=== PATIENT | female | born 1980 | race Caucasian/White ===

== ENCOUNTER 2018-09-23 15:57 | Emergency (ER) | payer MEDICAID ==
[~2018-09-23] VITALS: Ht 170.2 cm; Wt 104.3 kg
[~2018-09-23 15:57] MED LIST: BIRTH CONTROL
[2018-09-23 16:40] VITALS: BP 121/87
[2018-09-23] MEDS ORDERED: IBUPROFEN 800 MG TAB PO ONE (17:00)
== END 2018-09-23 17:27 | disposition home or self-care (01) ==
LOC: ER 15:57
DX: S90.122A Contusion of left lesser toe(s) without damage to nail, initial encounter (principal); F17.200 Nicotine dependence, unspecified, uncomplicated; E66.01 Morbid (severe) obesity due to excess calories; Z68.36 Body mass index [BMI] 36.0-36.9, adult; W22.8XXA Striking against or struck by other objects, initial encounter; Y93.89 Activity, other specified; Y92.89 Other specified places as the place of occurrence of the external cause; Y99.8 Other external cause status
CPT/HCPCS: 73630

== ENCOUNTER 2024-01-13 19:35 | Emergency (ER) | payer MEDICAID ==
[~2024-01-13] VITALS: Ht 170.2 cm; Wt 104.5 kg
[~2024-01-13 19:35] MED LIST changes: +CLIN1CAP70 PO; +HYDR-4902 PO
[2024-01-13 20:30] VITALS: BP 155/77; PULSE 101; RESP 24; TEMP 98.7; O2SAT 97
[2024-01-13] MEDS: DexAMETHasone SOD PHOS 10MG/1ML VIAL INJ IM ONE (21:02)
[2024-01-13] MEDS: diphenhdrAMINE HCL 50 MG/1 ML VL IM ONE (21:03)
[2024-01-13] MEDS ORDERED: METH4PAK PO (22:43)
== END 2024-01-13 23:24 | disposition home or self-care (01) ==
LOC: ER 19:35
DX: T78.49XA Other allergy, initial encounter (principal); F15.90 Other stimulant use, unspecified, uncomplicated; Z79.899 Other long term (current) drug therapy; Z98.890 Other specified postprocedural states; X58.XXXA Exposure to other specified factors, initial encounter
CPT/HCPCS: 71046; 96372; 99284; J1100; J1200

== ENCOUNTER 2024-12-01 05:24 | Inpatient (IN) | payer MEDICAID ==
[~2024-12-01] VITALS: Ht 170.2 cm; Wt 115.0 kg
[2024-12-01] VITALS (8 sets, daily range): BP systolic 132–142; BP diastolic 72–81; PULSE 81–120; RESP 16–22; TEMP 98–98.3; O2SAT 92–100
[~2024-12-01 05:24] MED LIST changes: +METH4PAK PO
[2024-12-01] MEDS: ONDANSETRON HCL 4 MG/2 ML VIAL IV ONE (05:56)
[2024-12-01] MEDS: SODIUM CHLORIDE 0.9% 1,000 ML IV ONE (06:00)
[2024-12-01 06:29] LABS: Chloride 107 mmol/L (98-107); Potassium 3.7 mmol/L (3.5-5.1); Sodium 139 mmol/L (136-145)
[2024-12-01 06:30] LABS: Anion Gap 9 (5-15); Calcium 9.8 mg/dL (8.7-10.4); Carbon Dioxide 23 mmol/L (20-31)
[2024-12-01 06:33] LABS: Hematocrit 34.5 % (36.0-46.0); Hemoglobin 11.3 g/dL (12.2-16.2); Mean Corpuscular Hemoglobin 23.2 pg (28.0-32.0); Mean Corpuscular Volume 70.9 fL (80.0-100.0); Nucleated Red Blood Cells % 0.1 %
--- NOTE | 2024-12-01 06:34 | ED.PDOC ---
SOB-HPI HPI Comments 44 y/o F, with no prior history presents to the ED for CC of shortness of breath. Patient states, she has been experiencing shortness of breath x2days with associated generalized body itching. Patient reports, having new onset symptoms of nausea and vomiting [id number]. At this time patient is tachycardiac with a heart rate in the 120's and hypertensive with a blood pressure of 157/120mmHg. Patient denies any prior medical history. Patient denies cough, f ever, body-aches, or chest pain. No other symptoms or modifying factors present at this time. Chief Complaint: Shortness of Breath Time Seen by MD: 06:20 Primary Care Provider: Johnnie Pollock notes: Nurses Notes, Medications, Allergies Information Source: Patient Mode of Arrival: Ambulatory Severity: Moderate Timing: Days Duration: Since onset Context: At Rest PE Risk Factors: None History of: None Prehospital treatment: None Modifying Factors: Nothing Associated Signs and Symptoms: None Past Medical History PAST MEDICAL HISTORY: Denies Surgical History: Cholecystectomy HOSPITAL INSURANCE CLERK History: No Pertinent HOSPITAL INSURANCE CLERK History Family History Family History: Unknown Social History Smoker: Non-Smoker Alcohol: Occasionally Drugs: Marijuana Lives In: Home Constitutional: denies: chills, diaphoresis, fatigue, fever, malaise, sweats, weakness, others EENTM: denies: blurred vision, double vision, ear bleeding, ear discharge, ear drainage, ear pain, ear ringing, eye pain, eye redness, hearing loss, mouth pain, mouth swelling, nasal discharge, nose bleeding, nose congestion, nose pain, photophobia, tearing, throat pain, throat swelling, voice changes, others Respiratory: reports: shortness of breath; denies: cough, hemoptysis, orthopnea, SOB at rest, SOB with excertion, stridor, wheezing, others Cardiovascular: denies: chest pain, dizzy spells, diaphoresis, Dyspnea on exertion, edema, irregular heart beat, left arm pain, lightheadedness, palpitations, PND, syncope, others Gastrointestinal: reports: nausea, vomiting; denies: abdomen distended, abdominal pain, blood streaked bowels, constipated, diarrhea, dysphagia, difficulty swallowing, hematemesis, melena, poor appetite, poor fluid intake, rectal bleeding, rectal pain, others Genitourinary: denies: abnormal vagina bleeding, burning, dyspareunia, dysuria, flank pain, frequency, hematuria, incontinence, pain, , vagina discharge, urgency, others Neurological: denies: dizziness, fainting, headache, left sided numbness, left sided weakness, numbness, paresthesia, pre-existing deficit, right sided numbness, right sided weakness, seizure, speech problems, tingling, tremors, weakness, others Musculoskeletal: denies: back pain, gout, joint pain, joint swelling, muscle pain, muscle stiffness, neck pain, others Integumetry: denies: bruises, change in color, change in hair/nails, dryness, laceration, lesions, lumps, rash, wounds, others Allergic/Immunocompromised: reports: Itching; denies: Difficulty Healing, Frequent Infections, Hives, others Hematologic/Lymphatic: denies: anemia, blood clots, easy bleeding, easy bruising, swollen glands, others Endocrine: denies: excessive hunger, excessive sweating, excessive thirst, excessive urination, flushing, intolerance to cold, intolerance to heat, unexplained weight gain, unexplained weight loss, others Psychiatric: denies: anxiety, bipolar disorder, depression, hopeless, panic disorder, schizophrenia, sleepless, suicidal, others All Other Systems: Reviewed and Negative Physical Exam General Appearance: No Apparent Distress, Normal HEENT: Normal ENT Inspection, Pharynx Normal Neck: Full Range of Motion, Non-Tender, Normal, Normal Inspection Respiratory: Chest Non-Tender, No Accessory Muscle Use, No Respiratory Distress, Wheezing, Other (non-productive cough) Cardiovascular: No Edema, No Murmur, No Gallop, Normal Peripheral Pulses, Regular Rate/Rhythm Breast Exam: Deferred Gastrointestinal: No Organomegaly, Non Tender, No Pulsatile Mass, Normal Bowel Sounds, Soft Genitalia: Deferred Pelvic: Deferred Rectal: Deferred Extremities: No calf tenderness, Normal capillary refill, Normal inspection, Normal range of motion, Non-tender, No pedal edema Musculoskeletal : Apperance: Normal Neurologic: Alert, site safety representative II-XII nml as Tested, No Motor Deficits, Normal Affect, Normal Mood, No Sensory Deficits Cerebellar Function: Normal Reflexes: Normal Skin: Dry, Normal Color, Warm Lymphatic: No Adenopathy Was a procedure done? Was a procedure done?: No Differential Dx Differential Diagnosis: Bronchitis, Pneumonia, Sinusitis, Pharyngitis, URI X-Ray, Labs, Meds, VS Vital Signs Date Time Temp Pulse Resp B/P (MAP) Pulse Ox O2 Delivery O2 Flow Rate FiO2 12/01/24 07:57 97.9 114 18 97 97.9 12/01/24 07:57 114 17 96 Nasal Cannula 2.0 12/01/24 06:32 78 12/01/24 06:07 120 22 94 Room Air* 0 21 12/01/24 06:01 98.0 120 22 157/120 (132) 94 98.0 12/01/24 05:35 98.0 120 22 157/120 (132) 94 98.0 12/01/24 05:35 94 Room Air* 0 21 Lab Test 12/01/24 06:46 12/01/24 05:59 12/01/24 05:44 Range/Units Troponin I High Sensitivity < 3 L < 3 L </=34 ng/L White Blood Count 4.8 4.4-10.8 10^3/uL Red Blood Count 4.86 4.0-5.20 10^6/uL Hemoglobin 11.3 L 12.2-16.2 g/dL Hematocrit 34.5 L 36.0-46.0 % Mean Corpuscular Volume 70.9 L 80.0-100.0 fL Mean Corpuscular Hemoglobin 23.2 L 28.0-32.0 pg Mean Corpuscular Hemoglobin Concent 32.7 32.0-36.0 g/dL Red Cell Distribution Width 17.1 H 11.8-14.3 % Platelet Count 279 140-450 10^3/uL Mean Platelet Volume 6.7 L 6.9-10.8 fL Neutrophils (%) (Auto) 59.9 37.0-80.0 % Lymphocytes (%) (Auto) 23.4 10.0-50.0 % Monocytes (%) (Auto) 11.0 0.0-12.0 % Eosinophils (%) (Auto) 5.1 0.0-7.0 % Basophils (%) (Auto) 0.6 0.0-2.0 % Neutrophils # (Auto) 2.9 1.6-8.6 10 ^3/uL Lymphocytes # (Auto) 1.1 0.4-5.4 10 ^3/uL Monocytes # (Auto) 0.5 0-1.3 10 ^3/uL Eosinophils # (Auto) 0.2 0-0.8 10 ^3/uL Basophils # (Auto) 0 0-0.2 10 ^3/uL Nucleated Red Blood Cells 0.1 % Sodium Level 139 136-145 mmol/L Potassium Level 3.7 3.5-5.1 mmol/L Chloride Level 107 98-107 mmol/L Carbon Dioxide Level 23 20-31 mmol/L Anion Gap 9 5-15 Blood Urea Nitrogen 10 9-23 mg/dL Creatinine 0.81 0.550-1.02 mg/dL Glomerular Filtration Rate Calc 91 >90 mL/min BUN/Creatinine Ratio 12.3 10.0-20.0 Serum Glucose 109 H 74-106 mg/dL Calcium Level 9.8 8.7-10.4 mg/dL Urine Test Negative Negative Current Medications Medications (Trade) Dose Ordered Sig/Shay Route Start Time Stop Time Status Last Admin Ondansetron HCl (Zofran) 4 mg ONCE ONCE IV 12/01/24 05:45 12/01/24 05:47 DC 12/01/24 05:56 Sodium Chloride 1,000 ml @ 1,000 mls/hr Q1H ONCE IV 12/01/24 06:00 12/01/24 06:59 DC 12/01/24 06:00 Albuterol (Ventolin Medneb) 5 mg ONCE ONCE NEB 12/01/24 07:45 12/01/24 07:46 DC 12/01/24 08:08 Ipratropium [place] (Atrovent Medneb) 0.5 mg ONCE ONCE NEB 12/01/24 07:45 12/01/24 07:46 DC 12/01/24 08:08 Methylprednisolone Sodium Succinate (Solu Medrol) 62.5 mg ONCE ONCE IV 12/01/24 07:45 12/01/24 07:46 DC 12/01/24 07:[address] [address] Ph: [phone] DIAGNOSTIC IMAGING Diagnostic Imaging Report : [id number] Signed PATIENT: NAE KOROMA ACCT: [id number] UNIT: [id number] : 1980 LOC: ER ROOM / BED: / AGE / SEX: 44 / F ADM STATUS: REG ER SERVICE [id number] ORDERING PHYSICIAN: REBECCA PAGE MD PROCEDURE(s): CXR1 - CHEST XRAY 1 VIEW REASON: SOB ORDER NUMBER(s): [id number], ACCESSION NUMBER(s): [id number] CHEST RADIOGRAPH Indication: SOB Technique: Single frontal view of the chest was obtained Comparison: None FINDINGS: Lines and Tubes: None Lungs: No focal consolidation. Pleura: No effusion. No pneumothorax. Cardiomediastinal contours: Unremarkable Bones: No acute osseous abnormality. IMPRESSION: 1. No acute cardiopulmonary disease. ATED BY: MAGGIE HANSEN MD DICTATED DATE/TIME: 12/01/24802 SIGNED BY: MAGGIE HANSEN MD SIGNED DATE/TIME: 12/01/24802 CC: Time of 1ST Reevaluation: 06:50 Reevaluation 1ST: Unchanged Patient Education/Counseling: Diagnosis, Treatment Family Education/Counseling: No Family Present SEPSIS Sepsis Screen Date sepsis recognized/suspect: Dec 01, 2024 Time Sepsis recognized/suspect: 601 Recent Procedure: No On Antibiotic Therapy: No Respiratory Rate >20: Yes Heart Rate >90: Yes Temp<36 C (96.8 F) or >38.3 C: No SBP <90 or MAP <65 mmHG: No New Acute Mental Status Change: No Is the patient on CPAP, BIPAP,: No Physician Orders Chest Xray 1 View (12/01/24 05:44) Saline Lock (12/01/24 05:44) Troponin-I Hs (12/01/24 08:44) Electrocardigram (12/01/24 05:44) Electrocardigram (12/01/24 06:44) Electrocardigram (12/01/24 08:44) Shellfish Sorter (12/01/24 ) Vital Signs Date Time Temp Pulse Resp B/P (MAP) Pulse Ox O2 Delivery O2 Flow Rate FiO2 12/01/24 07:57 97.9 114 18 97 97.9 12/01/24 07:57 114 17 96 Nasal Cannula 2.0 12/01/24 06:32 78 12/01/24 06:07 120 22 94 Room Air* 0 21 12/01/24 06:01 98.0 120 22 157/120 (132) 94 98.0 12/01/24 05:35 98.0 120 22 157/120 (132) 94 98.0 12/01/24 05:35 94 Room Air* 0 21 Laboratory Tests Test 12/01/24 05:59 White Blood Count 4.8 10^3/uL (4.4-10.8) Medications Medications Dose Ordered Sig/Shay Route Start Time Stop Time Status Last Admin Dose Admin Albuterol 5 mg ONCE ONCE NEB 12/01/24 07:45 12/01/24 07:46 DC 12/01/24 08:08 Ipratropium [place] 0.5 mg ONCE ONCE NEB 12/01/24 07:45 12/01/24 07:46 DC 12/01/24 08:08 Methylprednisolone Sodium Succinate 62.5 mg ONCE ONCE IV 12/01/24 07:45 12/01/24 07:46 DC 12/01/24 07:50 Ondansetron HCl 4 mg ONCE ONCE IV 12/01/24 05:45 12/01/24 05:47 DC 12/01/24 05:56 Sodium Chloride 1,000 ml @ 1,000 mls/hr Q1H ONCE IV 12/01/24 06:00 12/01/24 06:59 DC 12/01/24 06:00 Departure 1 Departure Time of Disposition: 08:15 (Patient with a worsening shortness of breath and likely asthma exacerbation. Patient is still with the heavy work of breathing. We will admit patient for further workup and expert consultation) Impression: Primary Impression: Shortness of breath Additional Impression: Nonproductive cough Disposition: ADMITTED INPATIENT Admit to: Med Surg Condition: Serious Critical Care Note Critical Care Time?: Yes Critical care comment: Shortness of breath Authorized and Performed by: Basim Cline MD Total critical care time: Approximately 39 minutes Due to a high probability of clinically significant, life threatening deterioration, the patient required my highest level of preparedness to intervene emergently and I personally spent this critical care time directly and personally managing the patient. This critical care time included obtaining a history; examining the patient; pulse oximetry; ordering and review of studies; arranging urgent treatment with development of a management plan; evaluation of patient's response to treatment; frequent reassessment; and, discussions with other providers. This critical care time was performed to assess and manage the high probability of imminent, life-threatening deterioration that could result in multi-organ failure. It was exclusive of separately billable procedures and treating other patients and teaching time. Please see my other sections and the rest of the note for further information on patient assessment and treatment. Stability Stability form required: No Heart Score Heart Score: Heart Score Response (Comments) Value History N/A 0 EKG N/A 0 Age N/A 0 Risk Factors N/A 0 Troponin N/A 0 Total 0 I personally scribed for BASIM CLINE MD ([email or web address]) on 12/01/24 at 06:34. Electronically submitted by Lolly Horn ([employer] I personally scribed for BASIM CLINE MD ([email or web address]) on 12/01/24 at 07:46. Electronically submitted by Lolly Horn ([employer] I personally scribed for BASIM CLINE MD ([email or web address]) on 12/01/24 at 08:08. Electronically submitted by Lolly Horn ([employer] [facility]). BASIM CLINE MD Dec 01, 2024 06:34
[2024-12-01 06:35] LABS: BUN/Creatinine Ratio 12.3 (10.0-20.0); Blood Urea Nitrogen 10 mg/dL (9-23)
[2024-12-01 06:36] LABS: Glucose 109 mg/dL (74-106)
[2024-12-01] MEDS: methylPREDNISolone SOD SUCC 125 MG/2 ML VL IV ONE (07:50)
--- NOTE | 2024-12-01 08:06 | DVH ---
CHEST RADIOGRAPH Indication: SOB Technique: Single frontal view of the chest was obtained Comparison: None FINDINGS: Lines and Tubes: None Lungs: No focal consolidation. Pleura: No effusion. No pneumothorax. Cardiomediastinal contours: Unremarkable Bones: No acute osseous abnormality. IMPRESSION: 1. No acute cardiopulmonary disease.
[2024-12-01] MEDS: ALBUTEROL SULF 2.5 MG/0.5ML(0.5%) NEB SOLN NEB ONE (08:08)
[2024-12-01] MEDS: IPRATROPIUM BROM 0.5 MG/2.5ML INH SOL NEB ONE (08:08)
[2024-12-01] MEDS ORDERED: ONDANSETRON HCL 4 MG/2 ML VIAL IV PRN (11:15)
[2024-12-01] MEDS ORDERED: HYDROcodone-ACET 5/325MG TAB PO PRN (11:15)
[2024-12-01] MEDS ORDERED: DOCUSATE SOD 100 MG CAP PO PRN (11:15)
[2024-12-01] MEDS ORDERED: ACETAMINOPHEN 325 MG TAB PO PRN (11:15)
--- NOTE | 2024-12-01 11:26 | ECG ---
[facility] Test Date: 2024-12-01 Test Time: 06:07:03 Pat Name: NAE KOROMA Department: ED Room: 0295 Gender: F Eyelet Operator: : 1980 Requested By: REBECCA PAGE Order Number: [id number] Reading MD: Juan Diego Diaz Measurements Intervals [place] Rate: 78 P: 75 PA: 163 QRS: 70 QRSD: 96 T: 45 QT: 388 QTc: 442 Interpretive Statements Sinus rhythm Low voltage, extremity and precordial leads Electronically Signed On 12-04-2024 18:56:56 PDT by Juan Diego Diaz Please click the below link to view image of tracing.
[2024-12-01] MEDS ORDERED: LEVOTAB51 PO (11:27)
--- NOTE | 2024-12-01 11:58 | DVHHP2 ---
History of Present Illness Reason for Visit: Shortness of breath History of Present Illness Edie Eller is a 44-year-old female with no significant past medical history who came in for shortness of breath. Patient states as a child she did have asthma, but she has not been treated for it on over 20 years. Patient states thi she has been sick with a cough and shortness of breath for months. May is when it started. She had a cough and shortness of breath for a few months. She was treated a couple times for it. In September-October she said she was doing better, but at the end of October she began to have respiratory problems again. She also states she quite smoking tobacco about 1 year ago and continues to smoke marijuana. Past Surgical History: Cholecystectomy Smoke: Quit (1 year ago) ALCOHOL: none Drugs: Marijuana Lives: with Family Domestic Violence: Neg Review of Systems Constitutional: No: Fever, Chills, Sweats, Weakness, Malaise, Other Eyes: No: Pain, Vision change, Conjunctivae inflammation, Eyelid inflammation, Other, Redness ENT: No: Ear pain, Ear discharge, Nose pain, Nose discharge, Nose congestion, Mouth pain, Mouth swelling, Throat pain, Throat swelling, Other Respiratory: Cough, Shortness of breath, SOB with excertion, Wheezing, Sputum; No: Dry, Hemoptysis, Pleuritic Pain, Wheezing, Other Cardiovascular: No: Chest Pain, Palpitations, Orthopnea, Paroxysmal Noc. D yspnea, Edema, Lt Headedness, Other Genitourinary: No Dysuria, No Frequency, No Incontinence, No Hematuria, No Retention, No Other Musculoskeletal: No: other, neck pain, shoulder pain, arm pain, back pain, hand pain, leg pain, foot pain Skin: No: Rash, Lesions, Jaundice, Bruising, Other Neurological: No: Weakness, Numbness, Incoordination, Change in speech, Confusion, Seizures, Other Allergies: Coded Allergies: NO KNOWN ALLERGIES (Unverified , 01/20/13) Exam Vital Signs Vital Signs Date Time Temp Pulse Resp B/P (MAP) Pulse Ox O2 Delivery O2 Flow Rate FiO2 12/01/24 09:29 97.7 88 18 144/79 (100) 97 97.7 12/01/24 08:13 Room Air* 0 21 21 General Appearance: Alert, Oriented X3, Cooperative, mild distress HEENT: Atraumatic, PERRLA, Mucous membr. moist/pink Respiratory: Other (Wheezing, diminished breath sounds) Cardiovascular: Normal S1, Normal S2, Other (ST) Abdominal: Normal bowel sounds, Soft, No tenderness Extremities: No clubbing, No cyanosis, No edema, Normal pulses, No tenderness/swelling Skin: No rashes, No breakdown, No significant lesion Neuro: Normal gait, Normal speech, Strength at 5/5 X4 ext, Normal tone Psych/Mental Status: Mental status NL, Mood NL Labs/Xrays Labs Test 12/01/24 08:35 12/01/24 05:59 12/01/24 05:44 Range/Units Troponin I High Sensitivity < 3 L </=34 ng/L White Blood Count 4.8 4.4-10.8 10^3/uL Red Blood Count 4.86 4.0-5.20 10^6/uL Hemoglobin 11.3 L 12.2-16.2 g/dL Hematocrit 34.5 L 36.0-46.0 % Mean Corpuscular Volume 70.9 L 80.0-100.0 fL Mean Corpuscular Hemoglobin 23.2 L 28.0-32.0 pg Mean Corpuscular Hemoglobin Concent 32.7 32.0-36.0 g/dL Red Cell Distribution Width 17.1 H 11.8-14.3 % Platelet Count 279 140-450 10^3/uL Mean Platelet Volume 6.7 L 6.9-10.8 fL Neutrophils (%) (Auto) 59.9 37.0-80.0 % Lymphocytes (%) (Auto) 23.4 10.0-50.0 % Monocytes (%) (Auto) 11.0 0.0-12.0 % Eosinophils (%) (Auto) 5.1 0.0-7.0 % Basophils (%) (Auto) 0.6 0.0-2.0 % Neutrophils # (Auto) 2.9 1.6-8.6 10 ^3/uL Lymphocytes # (Auto) 1.1 0.4-5.4 10 ^3/uL Monocytes # (Auto) 0.5 0-1.3 10 ^3/uL Eosinophils # (Auto) 0.2 0-0.8 10 ^3/uL Basophils # (Auto) 0 0-0.2 10 ^3/uL Nucleated Red Blood Cells 0.1 % Sodium Level 139 136-145 mmol/L Potassium Level 3.7 3.5-5.1 mmol/L Chloride Level 107 98-107 mmol/L Carbon Dioxide Level 23 20-31 mmol/L Anion Gap 9 5-15 Blood Urea Nitrogen 10 9-23 mg/dL Creatinine 0.81 0.550-1.02 mg/dL Glomerular Filtration Rate Calc 91 >90 mL/min BUN/Creatinine Ratio 12.3 10.0-20.0 Serum Glucose 109 H 74-106 mg/dL Calcium Level 9.8 8.7-10.4 mg/dL Urine Test Negative Negative CHEST RADIOGRAPH FINDINGS: Lines and Tubes: None Lungs: No focal consolidation. Pleura: No effusion. No pneumothorax. Cardiomediastinal contours: Unremarkable Bones: No acute osseous abnormality. IMPRESSION: 1. No acute cardiopulmonary disease. Assessment/Plan Assessment/Plan Assessment: Shortness of breath, Asthma exacerbation, Anemia, Plan: Admit to Med-Surg, Breathing treatments as needed, IV steroids, IV antibiotics, Sputum culture, Supplemental oxygen as needed, Influenza swab, COVID swab, IV antibiotics, Plan discussed with: Patient My Orders Orders - JESSICA LO Procedure Category Date Status Time Admit ADMIT 12/01/24 Transmitted 11:07 Code Status CODE 12/01/24 Transmitted 11:07 Hydrocodone-Acet PHA 12/01/24 Transmitted 5/325mg Tab ([place] 11:15 Ondansetron Hcl PHA 12/01/24 Transmitted (Zofran) 11:15 Docusate Sodium PHA 12/01/24 Transmitted Capsule ([place] 11:15 Complete Blood Count LAB 12/02/24 Verified 04:00 Comprehensive LAB 12/02/24 Verified Metabolic Panel 04:00 Condition: Serious MICHAEL 12/01/24 In Process 11:07 Acetaminophen Tablet PHA 12/01/24 Transmitted (Tylenol Tablet) 11:15 Ipratropium Medneb PHA 12/01/24 Transmitted (Atrovent Medneb) 11:15 Albuterol Medneb PHA 12/01/24 Transmitted (Ventolin Medneb) 11:15 Methylprednisolone PHA 12/01/24 Transmitted Sod Succ (Solu Medrol 22:00 Date of Service: Dec 01, 2024 Billing Provider: SCHWING,JESSICA R AUTISM SPECIALIST Common Visit Codes: [id number] INP/OBS CARE (MOD) JESSICA LO AUTISM SPECIALIST Dec 01, 2024 11:58
[2024-12-01] MEDS: AZITHROMYCIN 500MG/ 250ML 250 ML IV ONE (19:03)
[2024-12-01] MEDS: IPRATROPIUM BROM 0.5 MG/2.5ML INH SOL NEB PRN (19:20)
[2024-12-01] MEDS: ALBUTEROL SULF 2.5 MG/0.5ML(0.5%) NEB SOLN NEB PRN (19:20)
[2024-12-01] MEDS: diphenhdrAMINE HCL 50 MG/1 ML VL IV PRN (20:42)
[2024-12-01] MEDS: methylPREDNISolone SOD SUCC 40 MG/ML VL IV SCH (23:35)
[2024-12-02] VITALS (9 sets, daily range): BP systolic 121–146; BP diastolic 74–83; PULSE 75–99; RESP 17–20; TEMP 97.3–98.6; O2SAT 93–96
[2024-12-02 05:50] LABS: COVID19 ANTIGEN SOFIA FIA NEGATIVE (NEGATIVE)
[2024-12-02 05:54] LABS: Hemoglobin 10.4 g/dL (12.2-16.2)
[2024-12-02 05:58] LABS: Hematocrit 32.1 % (36.0-46.0); Mean Corpuscular Hemoglobin 23.2 pg (28.0-32.0); Mean Corpuscular Volume 71.2 fL (80.0-100.0); Nucleated Red Blood Cells % 0.2 %
[2024-12-02 06:40] LABS: Alanine Aminotransferase 10 U/L (7-40); Albumin 4.1 g/dL (3.2-4.8); Alkaline Phosphatase 105 U/L (46-116); Anion Gap 8 (5-15); BUN/Creatinine Ratio 10.8 (10.0-20.0); Blood Urea Nitrogen 9 mg/dL (9-23); Calcium 9.1 mg/dL (8.7-10.4); Carbon Dioxide 24 mmol/L (20-31); Chloride 107 mmol/L (98-107); Glucose 123 mg/dL (74-106); Potassium 4.6 mmol/L (3.5-5.1); Sodium 139 mmol/L (136-145); Total Protein 7.4 g/dL (5.7-8.2)
[2024-12-02 06:41] LABS: Bilirubin, Total 0.3 mg/dL (0.2-1.0)
[2024-12-02] MEDS: AZITHROMYCIN 500MG/ 250ML 250 ML IV SCH (09:48)
[2024-12-02] MEDS ORDERED: ALBUTEROL SULF 2.5 MG/0.5ML(0.5%) NEB SOLN NEB PRN (14:45)
[2024-12-02] MEDS ORDERED: IPRATROPIUM BROM 0.5 MG/2.5ML INH SOL NEB PRN (14:45)
--- NOTE | 2024-12-02 14:45 | DVHPNRES ---
Progress Note Date Seen: Dec 02, 2024 Resident Creating Document: JAYY SANTOS RESIDENT Medical Necessity Reason Pt with a Central, PICC or Fol: No Subjective Review of Systems 44-year-old female with no significant past medical history came in for shortness of breath. The patient states as a child she did have asthma, which she has not been treated for 8 on over 20 years. Patient states this year she has been sick with a cough and shortness of breath for months. May is when it started. She had cough and shortness of breath for a few months and was treated a couple of times for it. In September she said she was doing better but at the end of October she began to have respiratory problems again. In the past 3 days shortness of breath has increased. Is usually associated with dry cough and sometimes the cough is with sputum which is white in color. The patient reports that when coughing she even vomited once. Is not associated with fever, chills or chest pain. PMH: Patient states taking antibiotics week ago for STI. PSH cholecystectomy Family history: Reviewed and noncontributory Social history: Patient lives with family. The patient quit smoking 1 year ago. She used to take 1 pack of cigarettes per day for the past 5 years and smoked on and off in the past 20 years. The patient still takes marijuana. The patient denies taking any alcohol Or any other drugs. Home medication : Vitamin-D, magnesium Allergies: none ROS: The patient states feeling better than yesterday that her cough has improved. She reports that she is able to breathe better and has SOB only on walking bit more than normal. She complains of itching all over her body.Rest of the ROS is negative Objective vital signs Vital Sign Date Time Temp Pulse Resp B/P (MAP) Pulse Ox O2 Delivery O2 Flow Rate FiO2 12/02/24 13:00 98.2 79 17 125/80 (95) 93 98.2 12/02/24 08:05 Room Air* 0 21 Total Intake and Output 12/01/24 12/01/24 12/02/24 15:00 23:00 07:00 Intake Total 200 ml Balance 200 ml medications Current Medications Medications Dose Ordered Sig/Shay Route Start Time Stop Time Status Last Admin Dose Admin Acetaminophen/ Hydrocodone Bitart 1 tab Q4HP PRN PO 12/01/24 11:15 Ondansetron HCl 4 mg Q4HP PRN IV 7/7/25 11:15 Docusate Sodium 100 mg BIDPRN PRN PO 12/01/24 11:15 Acetaminophen 650 mg Q6HP PRN PO 12/01/24 11:15 Methylprednisolone Sodium Succinate 40 mg BID IV 12/01/24 22:00 12/02/24 09:45 40 MG Azithromycin 250 ml @ 125 mls/hr DAILY IV 12/02/24 10:00 12/02/24 09:48 125 MLS/HR Diphenhydramine HCl 25 mg Q4HP PRN IV 12/01/24 20:30 12/02/24 01:52 25 MG Albuterol 2.5 mg Q4HWA PRN NEB 12/02/24 14:45 UNV Ipratropium [place] 0.5 mg Q4HWA PRN NEB 12/02/24 14:45 UNV Examination General Appearance: Alert, Oriented X3, Cooperative, No acute distress HEENT: Atraumatic, PERRLA, EOMI, Mucous membrane moist/pink Respiratory: Clear to auscultation, Normal air movement Cardiovascular: Regular rate, Normal S1, Normal S2, No murmurs, no chest wall tenderness Abdominal: Normal bowel sounds, Soft, No tenderness, No hepatospenomegaly, No masses Extremities: No clubbing, No cyanosis, No edema, Normal pulses, No tenderness/swelling Skin: No rashes, No breakdown, No significant lesion Neuro: Normal gait, Normal speech, Strength at 5/5 X4 ext, Normal tone, Sensation intact, Cranial nerves 3-12 NL, Reflexes 2+ Psych/Mental Status: Mental status NL, Mood NL laboratory and microbiology Laboratory Tests 12/02/24 05:16 Test 12/02/24 05:16 Range/Units Serum Glucose 123 H 74-106 mg/dL Labs and/or images reviewed: Labs reviewed by me, Image(s) reviewed by me Problem List/Assessment/Plan Problem List/Assessment/Plan # Shortness of breaths due to acute asthma exacerbation - IV steroids methylprednisolone ordered - IV antibiotics azithromycin ordered - Sputum culture sent - Supplemental oxygen as needed - His influenza swab, COVID swab sent - Albuterol and ipratropium bromide medneb ordered # Dermatitis, unspecified - Benadryl given - Patricia and given # Anemia, microcytic hypochromic asymptomatic -Monitor labs GI PPX: Not Indicated VT PPX : ambulatory Diet: Regular diet Goals of care discussed with the patient for more than 27 minutes: Full Code status Case discussed with the Dr Cole, patient and nurse Plan discussed with: Patient, Other (RN) Date of Service: Dec 02, 2024 Billing Provider: WATSON COLE MD Common Visit Codes: [id number] INP/OBS CARE(HIGH) JAYY SANTOS RESIDENT Dec 02, 2024 14:45 OTTO ALEGRIA RESIDENT Dec 02, 2024 16:25 WATSON COLE MD Dec 02, 2024 23:45
[2024-12-02 16:11] LABS: Cannabinoid Screen, Urine Neg (NEGATIVE)
[2024-12-02 16:12] LABS: Amphetamine Screen, Urine Neg (NEGATIVE); Barbiturate Scree,Urine Neg (NEGATIVE); Benzodiazephine Screen, Urine Neg (NEGATIVE); Cocaine Screen, Urine Neg (NEGATIVE); Opiate Scree,Urine Neg (NEGATIVE); Phencyclidine Screen, Urine Neg (NEGATIVE)
[2024-12-02 17:34] LABS: Hematocrit 33.3 % (36.0-46.0); Hemoglobin 11.0 g/dL (12.2-16.2); Mean Corpuscular Hemoglobin 23.3 pg (28.0-32.0); Mean Corpuscular Volume 70.8 fL (80.0-100.0); Nucleated Red Blood Cells % 0.1 %
[2024-12-02] MEDS: FEXOFENADINE HCL 60 MG TAB PO PRN (21:00)
[2024-12-03 01:00] VITALS: BP 127/74; PULSE 90; RESP 18; TEMP 98.4; O2SAT 97
[2024-12-03 05:00] VITALS: BP 119/70; PULSE 86; RESP 18; TEMP 98.2; O2SAT 99
[2024-12-03 06:01] VITALS: O2SAT 97
[2024-12-03 08:40] LABS: Hematocrit 33.9 % (36.0-46.0); Hemoglobin 11.1 g/dL (12.2-16.2); Nucleated Red Blood Cells % 0.1 %
[2024-12-03 08:45] LABS: Mean Corpuscular Hemoglobin 23.2 pg (28.0-32.0); Mean Corpuscular Volume 71.1 fL (80.0-100.0)
[2024-12-03 09:09] VITALS: BP 132/75; PULSE 74; RESP 16; TEMP 97.4; O2SAT 96
[2024-12-03 10:37] LABS: Hepatitis B Surface Antigen Negative (Negative); Hepatitis C Antibody Negative (Negative)
[2024-12-03] MEDS ORDERED: ALBUAER3 IN (11:20)
[2024-12-03] MEDS ORDERED: AZIT-43 PO (11:20)
[2024-12-03] MEDS ORDERED: FEXO-42 PO (11:20)
[2024-12-03] MEDS ORDERED: BUDE1AER5 IN (11:20)
[2024-12-03] MEDS ORDERED: PRED20TA2 PO (11:20)
[2024-12-03 13:43] VITALS: BP 120/72; PULSE 80; RESP 16; TEMP 98; O2SAT 97
--- NOTE | 2024-12-03 15:17 | MEDREC ---
[facility] Intervention Section I [facility] Intervention: Review courses of therapy (PLEASE CONSIDER D/C ANTIBIOTIC IN ABSENCE OF BACTERIAL INFECTION) DAVID FANG PHARMACIST Dec 03, 2024 15:17
--- NOTE | 2024-12-03 15:34 | DVHDSRES ---
Discharge Summary Date of Admission Resident Creating Document: JAYY SANTOS RESIDENT Dec 01, 2024 at 11:07 Date of Discharge: Dec 03, 2024 Admitting Diagnosis # Shortness of breaths due to acute asthma exacerbation Labs/Diagnostic Data: Laboratory Results Test 12/03/24 07:44 12/02/24 15:23 12/02/24 05:16 12/01/24 08:35 White Blood Count 10.6 10^3/uL (4.4-10.8) Red Blood Count 4.77 10^6/uL (4.0-5.20) Hemoglobin 11.1 g/dL (12.2-16.2) Hematocrit 33.9 % (36.0-46.0) Mean Corpuscular Volume 71.1 fL (80.0-100.0) Mean Corpuscular Hemoglobin 23.2 pg (28.0-32.0) Mean Corpuscular Hemoglobin Concent 32.7 g/dL (32.0-36.0) Red Cell Distribution Width 17.3 % (11.8-14.3) Platelet Count 315 10^3/uL (140-450) Mean Platelet Volume 7.1 fL (6.9-10.8) Neutrophils (%) (Auto) 66.4 % (37.0-80.0) Lymphocytes (%) (Auto) 27.0 % (10.0-50.0) Monocytes (%) (Auto) 6.3 % (0.0-12.0) Eosinophils (%) (Auto) 0.1 % (0.0-7.0) Basophils (%) (Auto) 0.2 % (0.0-2.0) Neutrophils # (Auto) 7.1 10 ^3/uL (1.6-8.6) Lymphocytes # (Auto) 2.9 10 ^3/uL (0.4-5.4) Monocytes # (Auto) 0.7 10 ^3/uL (0-1.3) Eosinophils # (Auto) 0 10 ^3/uL (0-0.8) Basophils # (Auto) 0 10 ^3/uL (0-0.2) Nucleated Red Blood Cells 0.1 % Urine Opiates Screen Neg (NEGATIVE) Urine Fentanyl Screen Neg (NEGATIVE) Urine Barbiturates Screen Neg (NEGATIVE) Urine Phencyclidine Screen Neg (NEGATIVE) Urine Amphetamines Screen Neg (NEGATIVE) Urine Benzodiazepines Screen Neg (NEGATIVE) Urine Cocaine Screen Neg (NEGATIVE) Urine Cannabinoids Screen Neg (NEGATIVE) Sodium Level 139 mmol/L (136-145) Potassium Level 4.6 mmol/L (3.5-5.1) Chloride Level 107 mmol/L (98-107) Carbon Dioxide Level 24 mmol/L (20-31) Anion Gap 8 (5-15) Blood Urea Nitrogen 9 mg/dL (9-23) Creatinine 0.83 mg/dL (0.550-1.02) Glomerular Filtration Rate Calc 89 mL/min (>90) BUN/Creatinine Ratio 10.8 (10.0-20.0) Serum Glucose 123 mg/dL (74-106) Calcium Level 9.1 mg/dL (8.7-10.4) Total Bilirubin 0.3 mg/dL (0.2-1.0) Aspartate Amino Transferase (AST) 15 U/L (13-40) Alanine Aminotransferase (ALT) 10 U/L (7-40) Alkaline Phosphatase 105 U/L (46-116) Total Protein 7.4 g/dL (5.7-8.2) Albumin 4.1 g/dL (3.2-4.8) Troponin I High Sensitivity < 3 ng/L (</=34) Test 12/01/24 05:59 12/01/24 05:44 12/01/24 00:00 Hepatitis B Surface Antigen Negative (Negative) Hepatitis C Antibody Negative (Negative) Urine Test Negative (Negative) Influenza Type A Antigen Negative (Negative) Influenza Type B Antigen Negative (Negative) SARS-CoV-2 Antigen (Rapid) Negative (NEGATIVE) Other Laboratory Tests 12/03/24 07:44 12/02/24 05:16 Brief Hx & Hospital Course: 44-year-old female with no significant past medical history came in for shortness of breath. The patient states as a child she did have asthma, which she has not been treated for 8 on over 20 years. Patient states this year she has been sick with a cough and shortness of breath for months. May is when it started. She had cough and shortness of breath for a few months and was treated a couple of times for it. In September she said she was doing better but at the end of October she began to have respiratory problems again. In the past 3 days shortness of breath has increased. Is usually associated with dry cough and sometimes the cough is with sputum which is white in color. The patient reports that when coughing she even vomited once. Is not associated with fever, chills or chest pain. PMH: Patient states taking antibiotics week ago for STI. PSH cholecystectomy Family history: Reviewed and noncontributory Social history: Patient lives with family. The patient quit smoking 1 year ago. She used to take 1 pack of cigarettes per day for the past 5 years and smoked on and off in the past 20 years. The patient still takes marijuana. The patient denies taking any alcohol Or any other drugs. Home medication : Vitamin-D, magnesium Allergies: none Brief history of hospitalization: Patient came in for shortness of breath due to acute asthma exacerbation. IV steroids methylprednisolone was ordered and antibiotics azithromycin was given. Sputum sent for culture ensure. Supplemental oxygen was given to the patient as needed and incentive spirometry was started. Influenza swab and COVID test was done which came out negative. her chest x-ray showed no acute cardiopulmonary disease. Patient was given albuterol and ipratropium bromide med neb for symptoms. For her dermatitis which was unspecified we gave Benadryl. Allograft was added. For patient's anemia, microcytic hyperchromic asymptomatic labs were monitored. Patient is now stable for discharge and her symptoms have improved. She has been counseled regarding the need of incentive spirometry and to visit her PCP as well as pulmonology outpatient visit within 2 weeks' time. Patient communicated understanding. Patient is discharging with Ventolin, azithromycin, fexofenadine, prednisolone. General Appearance: Alert, Oriented X3, Cooperative, No acute distress HEENT: Atraumatic, PERRLA, EOMI, Mucous membrane moist/pink Respiratory: Clear to auscultation, Normal air movement Cardiovascular: Regular rate, Normal S1, Normal S2, No murmurs, no chest wall tenderness Abdominal: Normal bowel sounds, Soft, No tenderness, No hepatospenomegaly, No masses Extremities: No clubbing, No cyanosis, No edema, Normal pulses, No tenderness/swelling Skin: No rashes, No breakdown, No significant lesion Neuro: Normal gait, Normal speech, Strength at 5/5 X4 ext, Normal tone, Sensation intact, Cranial nerves 3-12 NL, Reflexes 2+ Psych/Mental Status: Mental status NL, Mood NL Operations or Procedures CHEST RADIOGRAPH IMPRESSION: 1. No acute cardiopulmonary disease. Condition at Discharge: Stable Final Diagnosis/Problems List # Shortness of breaths due to acute asthma exacerbation # Dermatitis, unspecified # Anemia, microcytic hypochromic asymptomatic Discharge Disposition: Home Discharge Instruct/Medications Diet: Regular Activity: No Restrictions, As Tolerated Follow Up/Referral: follow up with pcp and rehabilitation counsellor in next two weeks Medications: follow as in EMR Scheduled Azithromycin (Azithromycin), 250 MG PO DAILY Budesonide-Formoterol Fumarate (Budesonide/Formoterol Fum 80-4.5 Mcg/Act), 1 AER IN BID Fexofenadine Hydrochloride (Patricia Allergy), 1 TAB PO DAILY Levocetirizine Hydrochloride (Levocetirizine Dihydrochl), 1 TAB PO DAILY, (Reported) Prednisone (Prednisone), 40 MG PO DAILY Scheduled PRN Albuterol Sulfate (Ventolin Mdi), 90 MCG IN Q4HP PRN Miscellaneous Medications [ Control], (Reported) Discontinued Medications Clindamycin Hcl (Clindamycin Hcl), 1 CAP PO TID Hydrocodone-Acetaminophen (Hydrocodone Bitartrate/AC 5-325 mg), 1 TAB PO Q6HPRN PRN Methylprednisolone (Medrol Dosepak), 4 MG PO UD Discharge Statement: "Patient was advised to return to the ER or call 911 if any headaches, dizziness, shortness of breath, chest pain, abdominal pain, bleeding, fevers, or worsening of medical condition. Patient was counseled about treatment plan, medications, possible side effects, patientverbalized understanding. All questions were answered to the best of my ability. This discharge took greater then 30 minutes in planning, reviewing documentation, counseling the patient, and discussing with other team members." ASSESSMENT ASSESSMENT Assessment Shortness of breath due to asthma exacerbation Dermatitis, unspecified Date of Service: Dec 03, 2024 Billing Provider: WATSON LOPEZ MD Common Visit Codes: 70067-ACS/OBS DISCH DAY >30min JAYY SANTOS RESIDENT Dec 03, 2024 15:34 WATSON LOPEZ MD Dec 04, 2024 08:12
== END 2024-12-03 16:00 | disposition home or self-care (01) | DRG 141 ==
LOC: ER 05:24 → OVERFLOW 11:07 → WEST WING 23:54
PROVIDERS: ADMIT Internal Medicine; ATTEND Emergency Medicine
DX: J45.901 Unspecified asthma with (acute) exacerbation (principal); D50.9 Iron deficiency anemia, unspecified; L30.9 Dermatitis, unspecified; Z20.822 Contact with and (suspected) exposure to COVID-19; Z90.49 Acquired absence of other specified parts of digestive tract; Z87.891 Personal history of nicotine dependence; Z88.8 Allergy status to other drugs, medicaments and biological substances
CPT/HCPCS: 36415; 71045; 80048; 80053; 80307; 81025; 84484; 85025; 86803; 87070; 87205; 87340; 87426; 87804; 93005; 94640; 96374; 96375; 99291; G0378; J2405

== ENCOUNTER 2025-03-23 06:02 | Emergency (ER) | payer MEDICAID ==
[~2025-03-23] VITALS: Ht 170.2 cm; Wt 120.4 kg
[~2025-03-23 06:02] MED LIST changes: +ALBUAER3 IN; +AZIT-43 PO; +BUDE1AER5 IN; -CLIN1CAP70 PO; +FEXO-42 PO; -HYDR-4902 PO; +LEVOTAB51 PO; -METH4PAK PO; +PRED20TA2 PO
[2025-03-23] MEDS: methylPREDNISolone SOD SUCC 125 MG/2 ML VL IV ONE (06:41)
--- NOTE | 2025-03-23 06:42 | ED.PDOC ---
HPI Allergic reaction HPI Comments 44 year old female presents to the ED with a chief complaint of allergic reaction onset 1 day. Patient states she has been taking Cetirizine, 2 doses since 03/20/25, began experiencing generalized rash with hives and lip swelling 1 day ago. This morning, patient noticed lip swelling has slight improvement, began experiencing shortness of breath, came to ED. Upon ED arrival O2 sat was 95% on RA. Denies fever, chills, chest pain, dizziness, difficulty swallowing, sore throat. No other symptoms or modifying factors present at this time. Chief Complaint: Allergic Reaction Time Seen by MD: 06:25 Primary Care Provider: Johnnie Pollock Notes: Medications, Allergies Allergies: Coded Allergies: Iodine (Verified Allergy, Unknown, 12/03/24) CONTRAST Home Meds Active Scripts Fexofenadine Hydrochloride (AMAYA ALLERGY) 180 Mg Tab, 1 TAB PO DAILY, #30 TAB 2 Refills Prov:CATHERINE VILLALOBOS RESIDENT 12/03/24 Azithromycin (Azithromycin) 250 Mg Tab, 250 MG PO DAILY MDD 500 for 5 Days, #6 TAB 0 Refills 2 TABLETS ORALLY ON DAY ONE, THEN 1 TABLET ORALLY DAILY FOR 4 DAYS Prov:CATHERINE VILLALOBOS 12/03/24 Prednisone (Prednisone) 20 Mg Tab, 40 MG PO DAILY for 4 Days, #8 MG Prov:CATHERINE VILLALOBOS RESIDENT 12/03/24 Albuterol Sulfate (VENTOLIN MDI) 90 Mcg Ih, 90 MCG IN Q4HP PRN for 30 Days, #1 INH 1 Refill Prov:CATHERINE VILLALOBOS RESIDENT 12/03/24 Budesonide-Formoterol Fumarate (Budesonide/Formoterol Fum 80-4.5 Mcg/Act) 1 Aer Aer, 1 AER IN BID for 30 Days, #1 AER 1 Refill Prov:CATHERINE VILLALOBOS RESIDENT 12/03/24 Reported Medications Levocetirizine Hydrochloride (Levocetirizine Dihydrochl) 5 Mg Tab, 1 TAB PO DAILY 12/01/24 [ Control] No Conflict Check 01/20/13 Information Source: Patient Mode of Arrival: Ambulatory Severity: Moderate SOB: Moderate Timing: Days Duration: Since onset Prehospital treatment: None Location: Generalized, Lips Exposed to: Medication Developed: Rash, Other History of: None Past Medical History PAST MEDICAL HISTORY: Denies Surgical History: Cholecystectomy PRESIDENT AND CMO History: No Pertinent PRESIDENT AND CMO History Family History Family History: Unknown Social History Smoker: Non-Smoker Alcohol: Occasionally Drugs: Marijuana Lives In: Home Constitutional: denies: chills, diaphoresis, fatigue, fever, malaise, sweats, weakness, others EENTM: reports: others (lip swelling); denies: blurred vision, double vision, ear bleeding, ear discharge, ear drainage, ear pain, ear ringing, eye pain, eye redness, hearing loss, mouth pain, mouth swelling, nasal discharge, nose bleeding, nose congestion, nose pain, photophobia, tearing, throat pain, throat swelling, voice changes Respiratory: reports: shortness of breath; denies: cough, hemoptysis, orthopnea, SOB at rest, SOB with excertion, stridor, wheezing, others Cardiovascular: denies: chest pain, dizzy spells, diaphoresis, Dyspnea on exertion, edema, irregular heart beat, left arm pain, lightheadedness, palpitations, PND, syncope, others Gastrointestinal: denies: abdomen distended, abdominal pain, blood streaked bowels, constipated, diarrhea, dysphagia, difficulty swallowing, hematemesis, melena, nausea, poor appetite, poor fluid intake, rectal bleeding, rectal pain, vomiting, others Genitourinary: denies: abnormal vagina bleeding, burning, dyspareunia, dysuria, flank pain, frequency, hematuria, incontinence, pain, , vagina discharge, urgency, others Neurological: denies: dizziness, fainting, headache, left sided numbness, left sided weakness, numbness, paresthesia, pre-existing deficit, right sided numbness, right sided weakness, seizure, speech problems, tingling, tremors, weakness, others Musculoskeletal: denies: back pain, gout, joint pain, joint swelling, muscle pain, muscle stiffness, neck pain, others Integumetry: reports: rash; denies: bruises, change in color, change in hair/nails, dryness, laceration, lesions, lumps, wounds, others Allergic/Immunocompromised: reports: Hives; denies: Difficulty Healing, Frequent Infections, Itching, others Hematologic/Lymphatic: denies: anemia, blood clots, easy bleeding, easy bruising, swollen glands, others Endocrine: denies: excessive hunger, excessive sweating, excessive thirst, excessive urination, flushing, intolerance to cold, intolerance to heat, unexplained weight gain, unexplained weight loss, others Psychiatric: denies: anxiety, bipolar disorder, depression, hopeless, panic di sorder, schizophrenia, sleepless, suicidal, others All Other Systems: Reviewed and Negative Physical Exam General Appearance: Moderate Distress, Normal HEENT: Normal ENT Inspection, Pharynx Normal, TMs Normal Neck: Full Range of Motion, Non-Tender, Normal, Normal Inspection Respiratory: Chest Non-Tender, Lungs Clear, No Accessory Muscle Use, No Respiratory Distress, Normal Breath Sounds Cardiovascular: No Edema, No JVD, No Murmur, No Gallop, Normal Peripheral Pulses, Regular Rate/Rhythm Breast Exam: Deferred Gastrointestinal: No Organomegaly, Non Tender, No Pulsatile Mass, Normal Bowel Sounds, Soft Genitalia: Deferred Pelvic: Deferred Rectal: Deferred Extremities: No calf tenderness, Normal capillary refill, Normal inspection, Normal range of motion, Non-tender, No pedal edema Musculoskeletal : Apperance: Normal Neurologic: Alert, vice president process II-XII nml as Tested, No Motor Deficits, Normal Affect, Normal Mood, No Sensory Deficits Cerebellar Function: Normal Reflexes: Normal Skin: Dry, Normal Color, Warm, Other (Mild swelling of the lower lip) Peripheral Pulses: 3+ Radial (R), 3+ Radial (L) Lymphatic: No Adenopathy Was a procedure done? Was a procedure done?: No Differential diagnosis (all) Differential Diagnosis: Anaphylaxis, Drug Reaction X-Ray, Labs, Meds, VS Vital Signs Date Time Temp Pulse Resp B/P (MAP) Pulse Ox O2 Delivery O2 Flow Rate FiO2 03/23/25 08:55 98.3 78 20 164/95 (118) 96 98.3 03/23/25 08:55 78 18 96 Room Air 03/23/25 06:04 98.4 96 18 152/97 95 98.4 Current Medications Medications (Trade) Dose Ordered Sig/Shay Route Start Time Stop Time Status Last Admin Methylprednisolone Sodium Succinate (Solu Medrol) 125 mg ONCE ONCE IV 03/23/25 06:15 03/23/25 06:16 DC 03/23/25 06:41 Epinephrine HCl 0.3 mg ONCE ONCE SC 03/23/25 06:15 03/23/25 06:16 DC 03/23/25 06:40 Patient alert. Vitals stable. Came in because of reaction to her and has been medication. Answering questions. Was given steroid. Explained to the patient of the alert the reaction she has pain No tongue swelling pain Lungs clear. Not in distress. Was given prescription of prednisone. Was told to follow up with her primary care physician. Was told to come back if there is any problem. Time of 1ST Reevaluation: 06:55 Reevaluation 1ST: Unchanged Patient Education/Counseling: Diagnosis, Treatment, Prognosis Family Education/Counseling: Diagnosis, Treatment, Prognosis SEPSIS Sepsis Screen Date sepsis recognized/suspect: Mar 23, 2025 Time Sepsis recognized/suspect: 609 Recent Procedure: Yes On Antibiotic Therapy: No Respiratory Rate >20: No Heart Rate >90: Yes Temp<36 C (96.8 F) or >38.3 C: No SBP <90 or MAP <65 mmHG: No New Acute Mental Status Change: No Is the patient on CPAP, BIPAP,: No Vital Signs Date Time Temp Pulse Resp B/P (MAP) Pulse Ox O2 Delivery O2 Flow Rate FiO2 03/23/25 08:55 98.3 78 20 164/95 (118) 96 98.3 03/23/25 08:55 78 18 96 Room Air 03/23/25 06:04 98.4 96 18 152/97 95 98.4 Medications Medications Dose Ordered Sig/Shay Route Start Time Stop Time Status Last Admin Dose Admin Epinephrine HCl 0.3 mg ONCE ONCE SC 03/23/25 06:15 03/23/25 06:16 DC 03/23/25 06:40 Methylprednisolone Sodium Succinate 125 mg ONCE ONCE IV 03/23/25 06:15 03/23/25 06:16 DC 03/23/25 06:41 Departure 1 Departure Time of Disposition: 07:03 Impression: Primary Impression: Allergic reaction Qualified Codes: T78.40XA - Allergy, unspecified, initial encounter Disposition: 01 HOME / SELF CARE / HOMELESS Condition: Good e-Prescriptions Prednisone (Prednisone) 10 Mg Tab 10 MG PO BS for 7 Days, #7 MG Prov: EDDI GAMBINO MD 03/23/25 Discharged With: Self Critical Care Note Critical Care Time?: Yes (90 min-critical care time only) Stability Stability form required: No Heart Score Heart Score: Heart Score Response (Comments) Value History N/A 0 EKG N/A 0 Age N/A 0 Risk Factors N/A 0 Troponin N/A 0 Total 0 I personally scribed for EDDI GAMBINO MD ([email or web address]) on 03/23/25 at 06:42. Electronically submitted by Nancy Car ([email or web address]). EDDI GAMBINO MD Mar 23, 2025 06:42
[2025-03-23] MEDS ORDERED: PRED10TA PO (09:12)
[2025-03-23 09:33] VITALS: BP 160/99; PULSE 83; RESP 19; TEMP 98.2; O2SAT 100
== END 2025-03-23 09:46 | disposition home or self-care (01) ==
LOC: ER 06:02
DX: R22.9 Localized swelling, mass and lump, unspecified (principal); T78.40XA Allergy, unspecified, initial encounter; Z90.49 Acquired absence of other specified parts of digestive tract; X58.XXXA Exposure to other specified factors, initial encounter
CPT/HCPCS: 96372; 96374; 99284; J0169; J2919